=== PATIENT | female | born 1960 | race Caucasian/White ===

== ENCOUNTER 2021-03-02 07:31 | Emergency (ER) | payer BC, OTHER ==
[~2021-03-02] VITALS: Ht 172.7 cm; Wt 81.9 kg
--- NOTE | 2021-03-02 07:59 | NUR ---
PT PRESENTS TO ED WITH C/O LOWER ABD PAIN BILATERALLY. DENIES URINARY SYMTOMS, N/V/D, OR CONSTIPAITON. PT A&O, RESPS EVEN AND UNLABORED, VSS, NADN. EDMD BOSCOVISH AT BEDSIDE FOR EVAL.
[2021-03-02] MEDS ORDERED: ONDANSETRON 2MG/ML, 2ML ONE (08:20)
[2021-03-02] MEDS ORDERED: MORPHINE SULFATE 4 MG/ML, 1ML ONE (08:21)
[2021-03-02 08:26] LABS: BASOPHILS % (AUTO) 0 % (0-1); EOSINOPHILS % (AUTO) 2 % (1-7); LYMPHOCYTES % (AUTO) 18 % (22-44); MEAN CORPUSCULAR HEMOGLOBIN 32.5 pg (27.0-34.8); MEAN CORPUSCULAR HGB CONC 34.5 g/dL (32.4-35.8); MEAN PLATELET VOLUME 8.4 fL (7.4-10.4); MONOCYTES % (AUTO) 7 % (2-9); NEUTROPHILS % (AUTO) 73 % (42-75); PLATELET COUNT 262 x10^3/uL (130-400); RED BLOOD COUNT 4.21 x10^6/uL (3.82-5.3); RED CELL DISTRIBUTION WIDTH 12.7 % (9.6-15.2)
[2021-03-02] MEDS ORDERED: MORPHINE SULFATE 4 MG/ML, 1ML IVPush PRN (08:30)
[2021-03-02 08:33] LABS: ALANINE AMINOTRANSFERASE 23 U/L (12-78); ALBUMIN 3.6 g/dL (3.4-5.0); ANION GAP 5 mmol/L (5-15); CALCIUM 8.5 mg/dL (8.5-10.1); CHLORIDE 109 mmol/L (98-107); CREATININE 0.71 mg/dL (0.55-1.02)
[2021-03-02 08:35] LABS: ALKALINE PHOSPHATASE 92 U/L (45-117); BILIRUBIN,TOTAL 0.6 mg/dL (0.2-1.0); TOTAL PROTEIN 6.9 g/dL (6.4-8.2)
[2021-03-02 08:45] LABS: MICROSCOPIC AUTO
[2021-03-02] MEDS ORDERED: SODIUM CHLORIDE FLUSH 10ML SYR IVF ONE (09:00)
[2021-03-02] MEDS ORDERED: SODIUM CHLORIDE 0.9% 1,000ML IVBOLUS ONE (09:00)
[2021-03-02] MEDS ORDERED: ONDANSETRON 2MG/ML, 2ML IVPush ONE (09:00)
[2021-03-02] MEDS ORDERED: OMNIPAQUE 350 MG/ML, 100ML BOTTLE ONE (09:03)
--- NOTE | 2021-03-02 09:08 | NUR ---
PT BACK FROM CT, RESTING IN BED, STATES PAIN DECREASED AFTER MEDICATION ADMIN. PT A&O, RESPS EVEN AND UNLABORED, VSS, NADN.
[2021-03-02 10:05] VITALS: BP 119/77
--- NOTE | 2021-03-02 10:05 | NUR ---
pt resting in bed, fluids infusing, resps even and unlabored, a&o, vss, nadn. awaiting imaging results and dispo.
--- NOTE | 2021-03-02 11:11 | NUR ---
pt eductaed on discharge, verbalized understanding. ambulatory to discharge with steady gait.
== END 2021-03-02 11:14 | disposition home or self-care (01) ==
LOC: ED 10:01
DX: K57.32 Diverticulitis of large intestine without perforation or abscess without bleeding (principal); N30.00 Acute cystitis without hematuria
CPT/HCPCS: 36415; 74177; 80053; 81001; 83690; 85025; 87086; 96361; 96374; 96375; 99285; J2270; J2405; J7030; Q9967